=== PATIENT | male | born 1995 | race Caucasian/White ===

== ENCOUNTER 2024-10-29 02:48 | Emergency (ER) | payer MEDICAID, SELFPAY ==
[2024-10-29 02:49] VITALS: BMI 29.8
[2024-10-29 03:23] VITALS: BP 137/78; PULSE 67; RESP 18; TEMP 36.8; O2SAT 98
--- NOTE | 2024-10-29 03:36 | PD.EDRME ---
Rapid Medical Screening Exam ON LICENSE OF [facility] Arrival date/time: 10/29/24 02:48 29-year-old male presents to emergency department complaining of eye irritation after welding but reports was wearing active device. Chief Complaint: Eye Problems Vital signs: Vital Signs Temperature 98.3 F 10/29/24 03:23 Pulse Rate 67 10/29/24 03:23 Respiratory Rate 18 10/29/24 03:23 Blood Pressure 137/78 H 10/29/24 03:23 Pulse Oximetry (%) 98 10/29/24 03:23 Oxygen Delivery Method Room Air 10/29/24 03:23 Vital signs reviewed by provider: Yes
--- NOTE | 2024-10-29 04:38 | EDNOTE_ITS ---
<Statement entered by Patito Garces MD - 11/08/24 11:51> As co-signing physician, I was present and available for consult prn. I concur with the plan and care as documented by the midlevel provider. ED Eye Problem RME/HPI General Chief complaint: Eye Problems Stated complaint: BILATERAL EYE PAIN Time Seen by Provider: 10/29/24 04:38 Source: patient Arrival date/time: 10/29/24 02:48 29-year-old male presents to emergency department complaining of eye irritation after welding but reports was wearing eye protecting device. Mode of arrival: ambulatory Limitations: no limitations RME / HPI RME / HPI Narrative: 10/29/24 02:48 29-year-old male presents to emergency department complaining of eye irritation after welding but reports was wearing active device. Related Data Previous Rx's ?Medication ?Instructions ?Recorded erythromycin 5 mg/gram (0.5 %) eye 0.5 inch ophthalmic (eye) QID 5 10/29/24 ointment days #3.5 grams Allergies Allergy/AdvReac Type Severity Reaction Status Date / Time No Known Allergies Allergy Verified 10/29/24 02:52 Review of Systems Review of Systems Systems Reviewed: All systems reviewed, normal except as documented Constitutional Constitutional: Reports system reviewed and no additional complaints, except as documented, Denies body ache(s), Denies chills and Denies fever(s) Eyes Eyes: Reports system reviewed and no additional complaints, except as documented, Denies blurry vision, Denies change in vision, Reports irritation and Reports itchy eyes ENT Ears, Nose, Mouth, and Throat: Reports system reviewed and no additional complaints, except as documented, Denies disequilibrium, Denies dizziness, Denies sore throat and Denies vertigo Cardiovascular Cardiovascular: Reports system reviewed and no additional complaints, except as documented, Denies chest pain and Denies dyspnea Respiratory Respiratory: Reports system reviewed and no additional complaints, except as documented, Denies chest congestion, Denies cough and Denies dyspnea Gastrointestinal Gastrointestinal: Reports system reviewed and no additional complaints, except as documented, Denies abdominal pain, Denies nausea and Denies vomiting Musculoskeletal Musculoskeletal: Reports system reviewed and no additional complaints, except as documented, Denies abnormal gait and Denies arthralgias Integumentary/Breasts Skin/Breast: Reports system reviewed and no additional complaints, except as documented, Denies erythema, Denies rash and Denies wounds Neurologic Neurologic: Reports system reviewed and no additional complaints, except as documented, Denies abnormal gait, Denies disequilibrium, Denies dizziness and Denies vertigo Allergic/Immunologic Allergic/Immunologic: Reports itchy eyes Past Medical History Past Medical History CARDIAC: Negative Congestive Heart Failure RESPIRATORY: Negative Chronic Obstructive Pulmonary Disease (COPD) GENITOURINARY: Negative Renal Disease MUSCULOSKELETAL: Positive Musculoskeletal Disorders (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 hip pinned as a child) ENDOCRINE: Negative Diabetes Mellitus Type 1 or Diabetes Mellitus Type 2 Social History SMOKING STATUS: Never smoker ED Exam General Limitations: Present no limitations General appearance: Present alert and in no apparent distress Head Head exam: Present atraumatic Eye Eye exam: Present normal appearance, PERRL, EOMI, scleral icterus and conjunctival injection Expanded Eye Exam Pupils: Bilateral: regular, round and reactive Sclera/Conjunctival: bilateral: normal inspection ENT ENT exam: Present normal exam, normal oropharynx and mucous membranes moist Neck Neck exam: Present normal inspection, full ROM and trachea midline Chest Chest inspection: Present normal inspection and symmetric chest wall rise Respiratory Respiratory exam: Present normal lung sounds bilaterally Cardiovascular Cardiovascular exam: Present regular rate, normal rhythm and normal heart sounds Abdominal Exam Abdominal exam: Present soft and normal bowel sounds Extremities Exam Extremities exam: Present normal inspection and full ROM Back Exam Back exam: Present normal inspection and full ROM Neurological Exam Neurological exam: Present alert, oriented X3 and CN II-XII intact Psychiatric Psychiatric exam: Present normal affect and normal mood Skin Skin exam: Present warm, dry, intact and normal color Course Quality Measures none Orders Category Date Time Status Visual Acuity X1 Care 10/29/24 03:35 Active Restrepo Lamp to Bedside X1 Care 10/29/24 03:35 Active Fluorescein Sodium [[id number]] Med 10/29/24 03:35 Discontinued 1 mg RIGHT EYE X1 ONE TETRACAINE Op Yisel 0.5% [Pontocaine Op Yisel 0.5%] Med 10/29/24 03:35 Discontinued 1 drop RIGHT EYE X1 ONE Vital Signs Vital signs: Vital Signs Temperature 98.3 F 10/29/24 03:23 Pulse Rate 67 10/29/24 03:23 Respiratory Rate 18 10/29/24 03:23 Blood Pressure 137/78 H 10/29/24 03:23 Pulse Oximetry (%) 98 10/29/24 03:23 Oxygen Delivery Method Room Air 10/29/24 03:23 98% room air within normal limits Procedures -ED Restrepo Lamp Exam Bilateral eyes: Flourescein uptake:: Yes Restrepo Lamp Findings: Normal Eye MDM Narrative MDM Narrative:: 29-year-old male presents to emergency department complaining of eye irritation after welding but reports was wearing active device. Patient denies any change in vision, blurry vision, double vision, or any other associated symptom. Wood lamp exam unremarkable with no corneal abrasions or corneal ulcers or obvious foreign bodies. Patient discharged and instructed to follow-up with site acquisition manager in 24 to 48 hours and return to emergency department for any worsening symptoms or as needed. Patient data External records reviewed:: [facility] previous records Clinical information provided by:: patient Social determinants that could affect healthcare access:: none Patient has the following chronic illnesses:: See chart How is presenting disease/condition affected by chronic disease/condition?: uneffected by Evaluation data The following diagnostics were reviewed and interpreted by me:: other (specify) (N/A) Lab and/or radiology exams considered but not ordered:: N/A Interpretation Summary: N/A Medications / Prescriptions Medications or Prescriptions considered but not ordered:: Ordered Medication administrations:: Medication Administration History Discontinued Medications Fluorescein Sodium (Fluorescein Sod 1 Mg Strp) 1 mg RIGHT EYE X1 ONE Stop: 10/29/24 03:36 Tetracaine HCl (Tetracaine Pf Op Yisel 0.5% 4 Ml Drpette) 1 drop RIGHT EYE X1 ONE Stop: 10/29/24 03:36 Given Consultations Consultation(s) initiated? (list below): No Diagnosis Eye Problem Differential Diagnosis: corneal abrasion, conjunctivitis, acute iritis, hyphema, periorbital cellulitis, subconjunctival hemorrhage, glaucoma and corneal ulcer Most likely diagnosis given after review of the tests above:: Conjunctivitis Admission Indicated Admission indicated?: not indicated Admission Request Was there a request for admission?: No Disposition Plan Disposition Plan: Discharge Discharge Attestation Discharge Attestation: The patient and all family members were given an opportunity to ask questions and understood the discharge instructions. Discharge instructions specifically effects, indications for sooner follow up or return to the emergency department, and the expected course of current diagnosis. Patient condition: Stable Discharge Plan Plan Patient Disposition: HOME (Self Care) Disposition Comment: Stable Prescriptions/Referrals Prescriptions/Med Rec: New erythromycin 5 mg/gram (0.5 %) ointment 0.5 inch ophthalmic (eye) QID 5 Days Qty: 3.5 0RF Problem List Clinical Impression: Conjunctivitis Patient/Caregiver Discharge Instructions Discharge Activity: activity as tolerated Education Materials: ED Conjunctivitis, Nonspecific, ED Conjunctivitis, Bacterial Additional Instructions: Apply medication as prescribed. Follow-up with site acquisition manager in 24 to 48 hours. Return to emergency department for any worsening symptoms or as needed. Print Language: Welsh Stand Alone Forms: Seema Award Info., Patient Portal Info Letter PA/IT SENIOR ANALYST Supervising Physician PA/IT SENIOR ANALYST Supervising Physician: Dr. Garces
[2024-10-29] MEDS: TETRACAINE PF OP SOL 0.5% 4 ML DRPETTE 1 DROP BOTH EYES (04:40)
[2024-10-29] MEDS: FLUORESCEIN SOD 1 MG STRP BOTH EYES (04:52)
== END 2024-10-29 05:04 | disposition home or self-care (01) ==
LOC: SERX 04:59
PROVIDERS: Emergency Provider Emergency Medicine
DX: H10.9 Unspecified conjunctivitis (principal)
CPT/HCPCS: 99283